=== PATIENT | male | born 1995 | race Caucasian/White ===

== ENCOUNTER 2018-11-10 11:16 | Emergency (ER) | payer OTHER ==
--- NOTE | 2018-11-10 12:03 | ED ---
GI/ HPI - HPI Summary HPI Summary: This patient is a 23 year old M presenting to [facility] with a chief complaint of testicular pain since 2 days ago. Pt states he was told to come to [facility] by [facility]. He notes his testicular soreness and discomfort goes up and down in intensity. Pt says the discomfort started at the left testicle but currently alternates on both sides. He denies previous testicular pain/ discomfort. The patient rates the pain 7/10 in severity but describes it as a "background aching". Was not sudden onset and does not describe as severe. Symptoms aggravated by nothing. Symptoms alleviated by taking Advil. Pt denies dysuria, fever, sexual activity, infections. He has surgical hx of wisdom teeth removal, but denies any family health hx. - History of Current Complaint Chief Complaint: EDUrogenitalProblems Time Seen by Provider: 11/10/18 11:48 Stated Complaint: INJURY TO TESTICLES PER PT Hx Obtained From: Patient Onset/Duration: Started Days Ago - 2, Still Present Timing: Constant, Lasting Days - 2 Severity: Severe Current Severity: Severe Pain Intensity: 7 Location of Pain: Other - testicles Additional Locations for Males: Testicles Pain Characteristics: Other: - soreness/discomfort Associated Signs and Symptoms: Positive: Other: - positive - testicular soreness /discomfort. negative - any infections. Negative: Fever, Dysuria, New Sexual Partner - denies sexual activity Aggravating Factor(s): Nothing Alleviating Factor(s): OTC Analgesics - Advil - Allergy/Home Medications Allergies/Adverse Reactions: Allergies Allergy/AdvReac Type Severity Reaction Status Date / Time No Known Allergies Allergy Verified 11/10/18 11:34 PMH/Surg Hx/FS Hx/Imm Hx Previously Healthy: No Sensory History: Denies: Hx Cataracts, Hx Vision Problem EENT History: Denies: Hx Deafness, Hx Auditory Problems - Surgical History Surgical History: Yes Surgery Procedure, Year, and Place: wisdom teeth removal Infectious Disease History: No Infectious Disease History: Denies: Traveled Outside the [place] in Last 30 Days - Family History Known Family History: Positive: None - Social History Hx Substance Use: No Substance Use Type: Reports: None Hx Tobacco Use: No Smoking Status (MU): Never Smoked Tobacco Do You Chew or Dip Tobacco: No Have You Chewed or Dipped Tobacco in the LAST YEAR: No Have You Smoked in the Last Year: No Review of Systems Constitutional: Other - negative - sexual activity, infections Negative: Fever Genitourinary: Other - positive - testicular soreness/discomfort Negative: dysuria All Other Systems Reviewed And Are Negative: Yes Physical Exam - Summary Physical Exam Summary: Constitutional: Well-developed, Well-nourished, Alert. (-) Distressed Skin: Warm, Dry HENT: Normocephalic; Atraumatic Eyes: Conjunctiva normal Neck: Musculoskeletal ROM normal neck. (-) JVD, (-) Stridor, (-) Nuchal rigidity Cardio: Rhythm regular, rate normal, Heart sounds normal; Intact distal pulses; Radial pulses are 2+ and symmetric. (-) Murmur Pulmonary/Chest wall: Effort normal. (-) Respiratory distress, (-) Wheezes, (-) Rales Abd: Soft, (-) tenderness, (-) Distension, (-) Guarding, (-) Rebound : bilateral descended testes, mild posterior/lateral tenderness R>L. + cremasteric reflex bilaterally. No penile lesions Musculoskeletal: (-) Edema Lymph: (-) Cervical adenopathy Neuro: Alert, Oriented x3 Psych: Mood and affect Normal Triage Information Reviewed: Yes Vital Signs On Initial Exam: Initial Vitals Temp Pulse Resp BP Pulse Ox 99.9 F 117 16 158/100 100 11/10/18 11:30 11/10/18 11:30 11/10/18 11:30 11/10/18 11:30 11/10/18 11:30 Vital Signs Reviewed: Yes Diagnostics - Vital Signs Vital Signs Temp Pulse Resp BP Pulse Ox 11/10/18 11:30 99.9 F 117 16 158/100 100 - Laboratory Lab Statement: Any lab studies that have been ordered have been reviewed, and results considered in the medical decision making process. - Ultrasound Testicular Ultrasound Interpretation Completed By: Radiologist Summary of Ultrasound Findings: IMPRESSION: 1. NO SONOGRAPHIC FEATURES OF TORSION. PLEASE NOTE THAT PARTIAL OR INTERMITTENT TORSION. MAY BE SONOGRAPHICALLY NORMAL. 2. NO TESTICULAR PARENCHYMAL MASS. 3. NO ACUTE SONOGRAPHIC PATHOLOGY OF THE SCROTUM. These findings were reviewed by Dr. Webb. Re-Evaluation - Re-Evaluation First Eval Comment: UA neg, d/w patient treatment and urolog f/u GIGU Course/Dx - Course Course Of Treatment: 23-year-old male who presents with bilateral testicular discomfort for 2 days. Physical exam is reassuring, low suspicion for testicular torsion however will check ultrasound. Check urinalysis for infectious process but patient denies being sexually active. - testes are not high riding. Positive cremasteric reflex on exam. Patient denies sexual activity, is UTD on vaccinations therefore do not suspect mumps If all workup negative will treat him conservatively for epididymitis w Levaquin with urology follow-up. - Diagnoses Provider Diagnoses: Testicular pain, Epididymitis Discharge - Sign-Out/Discharge Documenting (check all that apply): Patient Departure - discharge Patient Received Moderate/Deep Sedation with Procedure: No - Discharge Plan Condition: Stable Disposition: HOME Prescriptions: Levofloxacin TAB* [Levaquin TAB*] 500 mg PO DAILY 10 Days #10 tab Patient Education Materials: Epididymitis (ED), Testicle Pain (ED) Referrals: No Primary Care Phys,NOPCP [Primary Care Provider] - Bhanu Keith MD [Medical Doctor] - 2 Days Additional Instructions: You were seen in the emergency department for testicular pain. Your ultrasound did not show any evidence of infection or testicular torsion. We will treat you for epididymitis. Please take Motrin and Tylenol for pain. Please return to the emergency department for worsening symptoms, fevers, chills, or if you are concerned. Follow-up with Dr. Keith, urology, within 2-3 days. - Billing Disposition and Condition Condition: STABLE Disposition: Home - Attestation Statements Document Initiated by Scribe: Yes Documenting Scribe: Ernie Berkowitz Provider For Whom Mollyibe is Documenting (Include Credential): Dr. Mandy Webb MD Scribe Attestation: Ernie Hill, scribed for Dr. Mandy Webb MD on 11/10/18 at 1352. Scribe Documentation Reviewed: Yes Provider Attestation: The documentation as recorded by the Ernie toledo accurately reflects the service I personally performed and the decisions made by me, Dr. Mandy Webb MD Status of Scribe Document: Viewed
[2018-11-10 12:38] LABS: Urine Appearance Clear; Urine Bilirubin Negative (Negative); Urine Blood Negative (Negative); Urine Color Straw; Urine Glucose Negative (Negative); Urine Ketones Negative (Negative); Urine Nitrite Negative (Negative); Urine Protein Negative (Negative); Urine Specific Gravity 1.004 (1.010-1.030); Urine Urobilinogen Negative (Negative)
[2018-11-10] MEDS ORDERED: Acetaminophen TAB* 325 MG PO ONE (12:59)
[2018-11-10 14:03] VITALS: BP 142/81
== END 2018-11-10 14:02 | disposition home or self-care (01) ==
LOC: ED 11:16
DX: N50.812 Left testicular pain (principal); N45.1 Epididymitis
CPT/HCPCS: 76870; 81003; 99282

== ENCOUNTER 2019-02-24 16:30 | Emergency (ER) | payer OTHER ==
[2019-02-24 18:02] LABS: ABS Eosinophils 0.1 10^3/ul (0-0.6); ABS Lymphocytes 1.7 10^3/ul (1.0-4.8); ABS Neutrophils 4.6 10^3/ul (1.5-7.7); Eosinophil % 0.8 %; Hematocrit 46 % (42-52); Hemoglobin 15.9 g/dL (14.0-18.0); Lymphocyte % 22.9 %; Mean Corpuscular HGB Conc 35 g/dL (31-36); Mean Corpuscular Hemoglobin 32 pg (27-31); Mean Corpuscular Volume 91 fL (80-94); Mean Platelet Volume 7.1 fL (7.4-10.4); Platelet Count 228 10^3/uL (150-450); Red Blood Count 5.07 10^6 /uL (4.18-5.48); Red Cell Distribution Width 13 % (10-15); White Blood Count 7.3 10^3/uL (3.5-10.8)
[2019-02-24 18:19] LABS: ALT 43 U/L (7-52); AST 32 U/L (13-39); Albumin 4.8 g/dL (3.2-5.2); Albumin/Globulin Ratio 1.8 (1-3); Alkaline Phosphatase 64 U/L (34-104); Anion Gap 7 mmol/L (2-11); BUN/Creatinine Ratio 22.6 (8-20); Blood Urea Nitrogen 19 mg/dL (6-24); CO2 Carbon Dioxide 27 mmol/L (22-32); Chloride 104 mmol/L (101-111); EGFR African American 139.6 (>60); EGFR Non-African American 115.3 (>60); Globulin 2.6 g/dL (2-4); Glucose 95 mg/dL (70-100); Sodium 138 mmol/L (135-145); Total Protein 7.4 g/dL (6.4-8.9)
[2019-02-24 18:43] LABS: TSH (Thyroid Stimulating Horm) 1.31 mcIU/mL (0.34-5.60)
--- NOTE | 2019-02-24 20:41 | ED ---
Palpitations / Dysrhythmia - HPI Summary HPI Summary: 23 year old M referred to [facility] by [facility] complains of intermittent episodes of heart palpitations and chest pain radiating into his left arm and left side of his neck with mild nausea lasting several minutes since waking up Monday 02/19 AM. Had an episode of chills yesterday. States he has never had these sx before. Seen by [facility] 2 days ago. Had f/u appointment today and was referred to the ED for further workup. Has cardiology appointment on Wednesday 02/28 to get 24 hour halter monitor. Patient denies fever, erythema of eyes, sore throat, shortness of breath, cough, abdominal pain, vomiting, decreased appetite, dysuria, hematuria, myalgia, edema, rash, or dizziness. Not currently having sx. The patient rates the pain 0/10 in severity. Symptoms aggravated by nothing. Symptoms alleviated by nothing. No recent stress or stressful life changes. No relationship or academic stress. No increased caffeine consumption. No stimulants to help him study. No recent colds/ illnesses. Hasn't been around anyone sick. Hx chronic epididymitis for which he takes ibuprofen, Tylenol, and antibiotics and sees urology at home. No STD hx. No pertinent FHx. No FHx thyroid disease. No alcohol. No drugs. Medications and allergies reviewed. - History of Current Complaint Chief Complaint: EDDysrhythmPalp Time Seen by Provider: 02/24/19 19:56 Hx Obtained From: Patient Onset/Duration: Lasting Days, Still Present Timing: Intermittent Episodes Lasting: Severity Currently: None Aggravating: Nothing Alleviating: Nothing - Allergy/Home Medications Allergies/Adverse Reactions: Allergies Allergy/AdvReac Type Severity Reaction Status Date / Time No Known Allergies Allergy Verified 02/24/19 16:44 Home Medications: Home Medications Ibuprofen 600 mg PO Q6HR PRN 02/24/19 [History Confirmed 02/24/19] Tylenol 650 mg PO Q4HR PRN 02/24/19 [History Confirmed 02/24/19] PMH/Surg Hx/FS Hx/Imm Hx Previously Healthy: No - chronic epididymitis Sensory History: Denies: Hx Cataracts, Hx Vision Problem, Hx Deafness Opthamlomology History: Denies: Hx Cataracts, Hx Vision Problem - Surgical History Surgery Procedure, Year, and Place: wisdom teeth removal - Immunization History Immunizations Up to Date: Yes Infectious Disease History: No Infectious Disease History: Denies: Traveled Outside the [place] in Last 30 Days - Family History Known Family History: Positive: Other - NEG: thyroid disease Negative: Cardiac Disease, Hypertension, Diabetes - Social History Alcohol Use: None Hx Substance Use: No Substance Use Type: Reports: None Hx Tobacco Use: No Smoking Status (MU): Never Smoked Tobacco Have You Smoked in the Last Year: No Review of Systems Negative: Fever, Chills Negative: Erythema Negative: Sore Throat Positive: Palpitations, Chest Pain Negative: Shortness Of Breath, Cough Gastrointestinal: Negative - decreased appetite Positive: Nausea. Negative: Abdominal Pain, Vomiting Negative: dysuria, hematuria Negative: Myalgia, Edema Negative: Rash Neurological: Negative - Dizziness All Other Systems Reviewed And Are Negative: Yes Physical Exam - Summary Physical Exam Summary: Constitutional: Well-developed, Well-nourished, Alert. (-) Distressed Skin: Warm, Dry HENT: Normocephalic; Atraumatic Eyes: Conjunctiva normal Neck: Musculoskeletal ROM normal neck. (-) JVD, (-) Stridor, (-) Tracheal deviation Cardio: Rhythm regular, rate normal, Heart sounds normal; Intact distal pulses; The pedal pulses are 2+ and symmetric. Radial pulses are 2+ and symmetric. (-) Murmur Pulmonary/Chest wall: Effort normal. (-) Respiratory distress, (-) Wheezes, (-) Rales Abd: Soft, (-) tenderness, (-) Distension, (-) Guarding, (-) Rebound Musculoskeletal: (-) Edema Lymph: (-) Cervical adenopathy Neuro: Alert, Oriented x3 Psych: Mood and affect Normal Triage Information Reviewed: Yes Vital Signs On Initial Exam: Initial Vitals Temp Pulse Resp BP Pulse Ox 99.8 F 96 18 139/83 99 02/24/19 16:40 02/24/19 16:40 02/24/19 16:40 02/24/19 16:40 02/24/19 16:40 Vital Signs Reviewed: Yes Procedures - Sedation Patient Received Moderate/Deep Sedation with Procedure: No Diagnostics - Vital Signs Vital Signs Temp Pulse Resp BP Pulse Ox 02/24/19 19:48 81 4 134/83 100 02/24/19 19:46 81 100 02/24/19 18:14 98.4 F 84 16 137/74 100 02/24/19 16:40 99.8 F 96 18 139/83 99 - Laboratory Lab Results: Lab Results 02/24/19 02/24/19 02/24/19 Range/Units 17:54 17:55 17:55 WBC 7.3 (3.5-10.8) 10^3/uL RBC 5.07 (4.18-5.48) 10^6 /uL Hgb 15.9 (14.0-18.0) g/dL Hct 46 (42-52) % MCV 91 (80-94) fL MCH 32 H (27-31) pg MCHC 35 (31-36) g/dL RDW 13 (10-15) % Plt Count 228 (150-450) 10^3/uL MPV 7.1 L (7.4-10.4) fL Neut % (Auto) 62.8 % Lymph % (Auto) 22.9 % Alexander % (Auto) 13.1 % Eos % (Auto) 0.8 % Baso % (Auto) 0.4 % Absolute Neuts (auto) 4.6 (1.5-7.7) 10^3/ul Absolute Lymphs (auto) 1.7 (1.0-4.8) 10^3/ul Absolute Monos (auto) 1.0 H (0-0.8) 10^3/ul Absolute Eos (auto) 0.1 (0-0.6) 10^3/ul Absolute Basos (auto) 0.0 (0-0.2) 10^3/ul Absolute Nucleated RBC 0.0 10^3/ul Nucleated RBC % 0.0 Sodium 138 (135-145) mmol/L Potassium 4.0 (3.5-5.0) mmol/L Chloride 104 (101-111) mmol/L Carbon Dioxide 27 (22-32) mmol/L Anion Gap 7 (2-11) mmol/L BUN 19 (6-24) mg/dL Creatinine 0.84 (0.67-1.17) mg/dL Est GFR ( Amer) 139.6 (>60) Est GFR (Non-Af Amer) 115.3 (>60) BUN/Creatinine Ratio 22.6 H (8-20) Glucose 95 (70-100) mg/dL Lactic Acid 0.7 (0.5-2.0) mmol/L Calcium 10.0 (8.6-10.3) mg/dL Magnesium 2.0 (1.9-2.7) mg/dL Total Bilirubin 0.80 (0.2-1.0) mg/dL AST 32 (13-39) U/L ALT 43 (7-52) U/L Alkaline Phosphatase 64 (34-104) U/L Troponin I 0.00 (<0.04) ng/mL Total Protein 7.4 (6.4-8.9) g/dL Albumin 4.8 (3.2-5.2) g/dL Globulin 2.6 (2-4) g/dL Albumin/Globulin Ratio 1.8 (1-3) TSH 1.31 (0.34-5.60) mcIU/mL Result Diagrams: 02/24/19 17:54 02/24/19 17:55 Lab Statement: Any lab studies that have been ordered have been reviewed, and results considered in the medical decision making process. - EKG 163 Cardiac Rate: NL - 80 BPM EKG Rhythm: Sinus Rhythm 2005 Cardiac Rate: NL - 77 BPM EKG Rhythm: Sinus Rhythm Course/Dx - Course Course Of Treatment: 23 year old M referred to [facility] by [facility] for further workup complains of intermittent episodes of heart palpitations and chest pain radiating into his left arm and left side of his neck with mild nausea lasting several minutes since waking up Thursday 11/09 AM. Physical exam findings: unremarkable. Bloodwork results with no significant abnormalities except for MCH 32, MPV 7.1, D-Dimer 339, BUN/creatinine 22.6. Toxicology results with no significant abnormalities. EKG shows NSR 80 BPM. Repeat EKG shows NSR 77 BPM. Elevated D-dimer. Travel hx 3 weeks ago to [facility]. Chest CTA ordered. The patient will be signed out to Dr. Viveros upon shift change 02/24/19 22:00 awaiting Chest CTA and pending disposition. - Diagnoses Provider Diagnoses: Chest pain, Palpitations, Elevated d-dimer Discharge ED - Sign-Out/Discharge Documenting (check all that apply): Sign-Out Patient Signing out patient TO: Luis Angel Viveros - Discharge Plan Condition: Stable Referrals: George Evangelista, SHEET METAL WELDER [Primary Care Provider] - - Attestation Statements Document Initiated by Scribe: Yes Documenting Scribe: Mallorie Turner Provider For Whom Scribe is Documenting (Include Credential): Hieu Munoz MD Scribe Attestation: I, Mallorie Turner, scribed for Hieu Munoz MD on 02/24/19 at 2201. Status of Scribe Document: Ready
[2019-02-24 21:01] LABS: C Reactive Protein < 1.00 mg/L (<8.01)
[2019-02-24 21:31] LABS: Urine Benzodiazepine Screen None Detected (None Detect); Urine Opiates Screen None Detected (None Detect)
[2019-02-24] MEDS ORDERED: Iohexol 350* (CONTRAST) 500 ML MDV IV ONE (21:59)
--- NOTE | 2019-02-25 00:03 | ED ---
Progress - Progress Note Progress Note: Patient is received as a sign-out from Dr. Munoz to Dr. Viveros at 2200 shift change pending CTA chest/thorax. CHEST/THORAX CTA IMPRESSION: No acute findings. THIS REPORT WAS REVIEWED BY DR. VIVEROS. Results of CTA were discussed, patient was discharged to home and will follow up with PCP. Re-Evaluation - Re-Evaluation First Eval Re-Evaluation Time: 23:40 Comment: Results of CTA were discussed, patient was discharged to home and will follow up with PCP. Course/Dx - Course Course Of Treatment: Patient is received as a sign-out from Dr. Munoz to Dr. Viveros at 2200 02/24/19 shift change pending CTA chest/thorax. CHEST/THORAX CTA IMPRESSION: No acute findings. THIS REPORT WAS REVIEWED BY DR. VIVEROS. Results of CTA were discussed, patient was discharged to home and will follow up with PCP. - Diagnoses Provider Diagnoses: Palpitations Discharge ED - Sign-Out/Discharge Documenting (check all that apply): Patient Departure - discharge - Discharge Plan Condition: Good Disposition: HOME Patient Education Materials: Heart Palpitations (ED) Referrals: George Evangelista, MANUFACTURING ENGINEER MACHINING [Primary Care Provider] - Additional Instructions: The tests did not show any sign of a dangerous condition, principally blood clots in the lung, so it is safe to discharge you to follow up with the already planned evaluation with your own doctors. - Billing Disposition and Condition Condition: GOOD Disposition: Home - Attestation Statements Document Initiated by Frantz: Yes Documenting Scribe: HILARY HERNANDEZ Provider For Whom Frantz is Documenting (Include Credential): STEPHANY VIVEROS MD Scribe Attestation: IHILARY, scremmyed for STEPHANY VIVEROS MD on 02/25/19 at 1845. Scribe Documentation Reviewed: Yes Provider Attestation: The documentation as recorded by the HILARY toledo accurately reflects the service I personally performed and the decisions made by me, STEPHANY VIVEROS MD Status of Scribe Document: Viewed
[2019-02-25 00:21] VITALS: BP 123/67
== END 2019-02-25 00:20 | disposition home or self-care (01) ==
LOC: ED 16:30
DX: R07.89 Other chest pain (principal); R00.2 Palpitations; R79.1 Abnormal coagulation profile; R11.0 Nausea
CPT/HCPCS: 36415; 71275; 80053; 80307; 83605; 83735; 84443; 84484; 85025; 85379; 86140; 93005; 99284; Q9967

== ENCOUNTER 2019-02-28 08:18 | Emergency (ER) | payer OTHER ==
--- NOTE | 2019-02-28 09:05 | ED ---
GI/ HPI - HPI Summary HPI Summary: Patient is a 23-year-old male who presents emergency department for increased testicular pain 3 days. Patient states he's been having issues with epididymitis over the last 5 months. Patient notes he has been on numerous antibiotics and was last treated with Bactrim about one month ago. Patient states he is following with a urologist in [facility]. Patient was concerned because his pain increased over the last few days. Patient denies fever, chills, abdominal pain, vomiting, dysuria, hematuria, penile discharge, concern for STI's. Symptoms are moderate in severity. Activity makes symptoms worse. Rest and anti-inflammatories improves symptoms. Patient otherwise denies past medical history. - History of Current Complaint Chief Complaint: EDUrogenitalProblems Time Seen by Provider: 02/28/19 08:27 Stated Complaint: TESTICLE PAIN PER PT Hx Obtained From: Patient Pain Intensity: 8 - Allergy/Home Medications Allergies/Adverse Reactions: Allergies Allergy/AdvReac Type Severity Reaction Status Date / Time No Known Allergies Allergy Verified 02/28/19 08:21 Home Medications: Home Medications Acetaminophen TAB* [Tylenol TAB*] 500 mg PO TID 02/28/19 [History Confirmed ] Ibuprofen TAB* [Advil TAB*] 400 mg PO TID 02/28/19 [History Confirmed 02/28/19] Naproxen TAB* [Naprosyn 250 mg TAB*] 250 mg PO Q8H PRN 02/28/19 [History Confirmed 02/28/19] PMH/Surg Hx/FS Hx/Imm Hx Previously Healthy: Yes Endocrine/Hematology History: Denies: Hx Diabetes Cardiovascular History: Denies: Hx Hypertension History: Denies: Hx Renal Disease Sensory History: Denies: Hx Cataracts, Hx Vision Problem, Hx Deafness Opthamlomology History: Denies: Hx Cataracts, Hx Vision Problem - Surgical History Surgery Procedure, Year, and Place: wisdom teeth removal Infectious Disease History: No Infectious Disease History: Denies: Traveled Outside the [place] in Last 30 Days - Family History Known Family History: Positive: Other - NEG: thyroid disease Negative: Cardiac Disease, Hypertension, Diabetes - Social History Occupation: Student Lives: Dormitory/Roommates Alcohol Use: None Hx Substance Use: No Substance Use Type: Reports: None Hx Tobacco Use: No Smoking Status (MU): Never Smoked Tobacco Have You Smoked in the Last Year: No Review of Systems Constitutional: Negative Negative: Fever Gastrointestinal: Negative Positive: other - Testicle pain. . Negative: burning, dysuria, discharge Skin: Negative Negative: Rash Neurological: Negative All Other Systems Reviewed And Are Negative: Yes Physical Exam Triage Information Reviewed: Yes Vital Signs On Initial Exam: Initial Vitals Temp Pulse Resp BP Pulse Ox 99 F 125 15 129/87 99 02/28/19 08:18 02/28/19 08:18 02/28/19 08:18 02/28/19 08:18 02/28/19 08:18 Vital Signs Reviewed: Yes Appearance: Positive: Well-Appearing - Pt. sitting up in bed in NAD. Skin: Positive: Warm, Dry Head/Face: Positive: Normal Head/Face Inspection Eyes: Positive: Normal, EOMI Neck: Positive: Supple Respiratory/Lung Sounds: Positive: Clear to Auscultation, Breath Sounds Present Cardiovascular: Positive: Normal, RRR Abdomen Description: Positive: Nontender, Soft Male Genital Exam: Positive: Other - Exam performed with nurse in roomRosanne. No erythema or edema. No lesions or rash. No penile discharge. Neurological: Positive: Normal, CN Intact II-III Psychiatric: Positive: Affect/Mood Appropriate Procedures - Sedation Patient Received Moderate/Deep Sedation with Procedure: No Diagnostics - Vital Signs Vital Signs Temp Pulse Resp BP Pulse Ox 02/28/19 08:18 99 F 125 15 129/87 99 - Laboratory Lab Statement: Any lab studies that have been ordered have been reviewed, and results considered in the medical decision making process. GIGU Course/Dx - Course Course Of Treatment: Patient with increased testicular pain on the last few days. Is afebrile. Testicular ultrasound and urinalysis ordered for further evaluation. Patient notes he took anti-inflammatory prior to arrival. IMPRESSION: 1. NO EVIDENCE FOR TESTICULAR TORSION OR EPIDIDYMITIS. 2. SMALL BILATERAL EPIDIDYMAL HEAD CYSTS, UNCHANGED. Urinalysis negative for infection. Results discussed with patient. He feels an appointment with his urologist next week. Patient states to call his urologist. Today to discuss ultrasound. Advised to continue anti-inflammatories as directed. Cool compresses and scrotal elevation. Return to the ER if symptoms change or worsen. Patient understands and agrees with plan. - Diagnoses Differential Diagnoses - Male: Epididymitis, STD, Testicular Torsion, Urinary Tract Infection Provider Diagnoses: Pain in testicle Discharge ED - Sign-Out/Discharge Documenting (check all that apply): Patient Departure - Discharge Plan Condition: Good Disposition: HOME Patient Education Materials: Testicle Pain (ED) Referrals: George Evangelista AUTO TESTER [Primary Care Provider] - Additional Instructions: Follow up with your urologist as scheduled Continue anti-inflammatory for pain as directed such as ibuprofen Apply cool compresses and wear supportive underwear Return to ER if symptoms change or worsen - Billing Disposition and Condition Condition: GOOD Disposition: Home
[2019-02-28 10:06] LABS: Urine Appearance Clear; Urine Bilirubin Negative (Negative); Urine Blood Negative (Negative); Urine Color Straw; Urine Ketones Negative (Negative); Urine Nitrite Negative (Negative); Urine Protein Negative (Negative); Urine Specific Gravity 1.005 (1.010-1.030); Urine Urobilinogen Negative (Negative)
[2019-02-28 10:07] LABS: Urine Glucose Negative (Negative)
[2019-02-28 10:24] VITALS: BP 135/93
== END 2019-02-28 10:20 | disposition home or self-care (01) ==
LOC: ED 08:18
DX: N50.819 Testicular pain, unspecified (principal); Z79.899 Other long term (current) drug therapy
CPT/HCPCS: 76870; 81003; 99282